=== PATIENT | female | born 1955 | race African-American/Black ===

== ENCOUNTER 2017-09-12 13:26 | Emergency (ER) | payer OTHER ==
[~2017-09-12] VITALS: Ht 170.2 cm; Wt 134.7 kg
[~2017-09-12 13:26] MED LIST: ATORVASTATIN CA40 MG PO; CLONAZEPAM2 MG PO; HUMALOG100 UNIT/1 SUBQ; LANTUS100 UNIT/M SUBQ; LASIX 20 MG TAB20 MG PO; METFORMIN HCL500 MG PO; NORCO 5-325 TA1 EAC1 PO; POTASSIUM20 PO; PRILOSEC OTC20 MG PO; PROTONIX40 M1 PO; SEROQUEL XR400 MG PO; TRAZODONE 150150 M1 PO; TRICOR145 MG PO
[2017-09-12 13:37] VITALS: BP 131/92
[2017-09-12] MEDS ORDERED: SINGULAIR 10 MG10 M1 PO (13:44)
[2017-09-12] MEDS ORDERED: ABILIFY 2 MG2 M1 PO (13:45)
[2017-09-12] MEDS ORDERED: BISOPROLOL FUM2.5 MG PO (13:45)
[2017-09-12] MEDS ORDERED: COL-RITE100 MG PO (13:46)
[2017-09-12] MEDS ORDERED: TRAZODONE 150150 M1 PO (13:46)
[2017-09-12] MEDS ORDERED: CYMBALTA60 MG PO (13:46)
[2017-09-12] MEDS ORDERED: COZAAR 50 MG TA50 MG PO (13:47)
== END 2017-09-12 14:08 | disposition home or self-care (01) ==
LOC: M.ERS 13:26
DX: R22.42 Localized swelling, mass and lump, left lower limb (principal); I10 Essential (primary) hypertension; E78.00 Pure hypercholesterolemia, unspecified; E03.9 Hypothyroidism, unspecified; E66.9 Obesity, unspecified; E11.9 Type 2 diabetes mellitus without complications; J45.909 Unspecified asthma, uncomplicated; Z98.890 Other specified postprocedural states; Z88.5 Allergy status to narcotic agent; Z88.8 Allergy status to other drugs, medicaments and biological substances; Z79.4 Long term (current) use of insulin